=== PATIENT | female | born 1960 ===

== ENCOUNTER 2021-08-07 14:34 | Emergency (ER) | payer BC ==
[2021-08-07] MEDS ORDERED: Ondansetron 4 MG Tab.DIS PO ONE (14:35)
--- NOTE | 2021-08-07 15:12 | PCM.EKG ---
#1 Interpretation EKG Date: 08/07/21 Time: 14:51 EKG Interpretation Comments: Sinus tachycardia, leftward axis, no contiguous ST-T segment abnormalities
[2021-08-07] MEDS ORDERED: Ondansetron 4 MG/2 ML SDV IVPUSH ONE (15:13)
[2021-08-07] MEDS ORDERED: Propranolol 80 MG Cap.ER PO ONE (15:20)
[2021-08-07] MEDS ORDERED: cloNIDine 0.1 MG Tab PO ONE (15:21)
[2021-08-07] MEDS ORDERED: Labetalol 20 MG/4 ML Syringe IVPUSH ONE (15:26)
[2021-08-07] MEDS ORDERED: Amoxicillin/Clavulanate K 875-125 MG Tab PO ONE (15:38)
[2021-08-07] MEDS ORDERED: Acetaminophen 325 MG Tab PO ONE (15:38)
--- NOTE | 2021-08-07 15:39 | EDM.PDOC ---
ED HPI GENERAL MEDICAL PROBLEM - General Stated Complaint: HIGH BP Time Seen by Provider: 08/07/21 14:45 Source of Information: Reports: Patient History Limitations: Reports: No Limitations - History of Present Illness INITIAL COMMENTS - FREE TEXT/NARRATIVE: 61-year-old lady with past medical history significant for severe chronic sinusitis with corrective surgery went to the walk-in clinic because of a 2-day history of upper respiratory symptoms including sinus pain, cough, sinus drainage, sore throat, fever. She has been vaccinated for COVID-19 and does not know of any Covid positive contacts. However, her sister did test positive last month. In the walk-in clinic she was found to have significantly elevated blood pressure with systolic pressure above 200 and diastolic pressure above 100. She was sent to the emergency department for further evaluation and treatment. Patient revealed that because of her illness and some nausea she did not take her clonidine last night. She does also complain of a mild midsternal chest pain. headache Pain Score (Numeric/FACES): 4 mid abdomen Pain Score (Numeric/FACES): 4 - Related Data Allergies Allergy/AdvReac Type Severity Reaction Status Date / Time No Known Allergies Allergy Verified 08/07/21 15:17 Home Meds: Home Meds Amoxicillin/Potassium Clav [Augmentin 875-125 Tablet] 1 each PO BID #13 tablet 08/07/21 [Rx] FLUoxetine HCl [Prozac] 20 mg PO 08/07/21 [History] atorvaSTATin [Lipitor] 20 mg PO BEDTIME 08/07/21 [History] cloNIDine [Catapres] 0.1 mg PO DAILY 08/07/21 [History] ED ROS GENERAL - Review of Systems Review Of Systems: See Below Constitutional: Reports: Fever HEENT: Reports: Rhinitis, Sinus Problem, Throat Pain Respiratory: Reports: Cough Cardiovascular: Reports: Chest Pain Endocrine: Reports: No Symptoms GI/Abdominal: Reports: No Symptoms : Reports: No Symptoms Musculoskeletal: Reports: No Symptoms Skin: Reports: No Symptoms Neurological: Reports: No Symptoms Psychiatric: Reports: No Symptoms Hematologic/Lymphatic: Reports: No Symptoms Immunologic: Reports: No Symptoms ED EXAM, GENERAL - Physical Exam Exam: See Below Exam Limited By: No Limitations General Appearance: Alert, Mild Distress Eye Exam: Bilateral Eye: EOMI Throat/Mouth: Inflammation Head: Atraumatic, Normocephalic Neck: Normal Inspection. No: Lymphadenopathy (R), Lymphadenopathy (L) Respiratory/Chest: No Respiratory Distress, Lungs Clear, Normal Breath Sounds Cardiovascular: Normal Peripheral Pulses, Regular Rate, Rhythm, No Murmur Peripheral Pulses: 2+: Radial (L), Radial (R), Dorsalis Pedis (L), Dorsalis Pedis (R) GI/Abdominal: Normal Bowel Sounds, Non-Tender Back Exam: Normal Inspection. No: CVA Tenderness (R), CVA Tenderness (L) Extremities: Normal Inspection, No Pedal Edema Neurological: Alert, Oriented, CN II-XII Intact, Normal Cognition Psychiatric: Normal Affect, Normal Mood Skin Exam: Warm, Dry Course - Vital Signs Text/Narrative:: Patient given 4 mg Zofran IV, 10 mg labetalol IV, 0.1 mg clonidine p.o., 650 mg Tylenol p.o., and Augmentin 875/125 p.o. Review of EKG is within normal limits with no obvious ST T-segment changes, possible left axis deviation. Mild leukocytosis. Covid test is negative. Last Recorded V/S: Last Vital Signs Temp Pulse Resp BP 186/105 H 08/07/21 15:31 Pulse Ox - Orders/Labs/Meds Orders: Active Orders 24 hr Category Date Time Status UA W/MICROSCOPIC [URIN] Stat Lab 08/07/21 16:48 Received EKG 12 Lead [EK] Routine Ther 08/07/21 14:51 Ordered Labs: Laboratory Tests 08/07/21 08/07/21 08/07/21 Range/Units 15:00 15:00 15:00 WBC 11.2 H (3.0-10.3) x10-3/uL RBC 4.35 (3.60-5.20) x10(6)uL Hgb 14.2 (11.4-15.5) g/dL Hct 42.2 (34.2-48.2) % MCV 96.9 (76.7-100.5) fL MCH 32.6 (23.9-33.9) pg MCHC 33.7 (31.9-34.8) g/dL RDW 13.2 (12.3-16.5) % Plt Count 315 (151-488) x10(3)uL MPV 8.1 (7.1-12.4) fL Neut % (Auto) 69.9 (30.8-76.2) % Lymph % (Auto) 21.8 (18.4-52.1) % [place] % (Auto) 5.8 (4.4-15.7) % Eos % (Auto) 1.7 (0.6-8.1) % Baso % (Auto) 0.8 (0.2-1.5) % Neut # (Auto) 7.8 H (1.5-6.3) x10-3/uL Lymph # (Auto) 2.4 (1.0-4.4) x10-3/uL [place] # (Auto) 0.6 (0.3-1.0) x10-3/uL Eos # (Auto) 0.2 (0.0-0.8) x10-3/uL Baso # (Auto) 0.1 (0.0-0.1) x10-3/uL Sodium 141 (135-145) mmol/L Potassium 4.0 (3.5-5.3) mmol/L Chloride 105 (100-110) mmol/L Carbon Dioxide 24 (21-32) mmol/L BUN 13 (7-18) mg/dL Creatinine 0.9 (0.55-1.02) mg/dL Est Cr Clr Drug Dosing TNP Estimated GFR (MDRD) > 60 (>60) BUN/Creatinine Ratio 14.4 (9-20) Glucose 106 (80-116) mg/dL Calcium 8.7 (8.6-10.2) mg/dL Total Bilirubin 0.5 (0.1-1.3) mg/dL AST 40 H (5-25) IU/L ALT 43 H (12-36) U/L Alkaline Phosphatase 86 (56-112) IU/L Troponin I 5.9 (4.0-60.3) pg/mL Total Protein 7.6 (6.0-8.0) g/dL Albumin 4.1 (3.2-4.6) g/dL Globulin 3.5 g/dL Albumin/Globulin Ratio 1.2 SARS-CoV-2 RNA ([facility]ATH[facility]EN) (NEGATIVE) 08/07/21 Range/Units 16:00 WBC (3.0-10.3) x10-3/uL RBC (3.60-5.20) x10(6)uL Hgb (11.4-15.5) g/dL Hct (34.2-48.2) % MCV (76.7-100.5) fL MCH (23.9-33.9) pg MCHC (31.9-34.8) g/dL RDW (12.3-16.5) % Plt Count (151-488) x10(3)uL MPV (7.1-12.4) fL Neut % (Auto) (30.8-76.2) % Lymph % (Auto) (18.4-52.1) % [place] % (Auto) (4.4-15.7) % Eos % (Auto) (0.6-8.1) % Baso % (Auto) (0.2-1.5) % Neut # (Auto) (1.5-6.3) x10-3/uL Lymph # (Auto) (1.0-4.4) x10-3/uL [place] # (Auto) (0.3-1.0) x10-3/uL Eos # (Auto) (0.0-0.8) x10-3/uL Baso # (Auto) (0.0-0.1) x10-3/uL Sodium (135-145) mmol/L Potassium (3.5-5.3) mmol/L Chloride (100-110) mmol/L Carbon Dioxide (21-32) mmol/L BUN (7-18) mg/dL Creatinine (0.55-1.02) mg/dL Est Cr Clr Drug Dosing Estimated GFR (MDRD) (>60) BUN/Creatinine Ratio (9-20) Glucose (80-116) mg/dL Calcium (8.6-10.2) mg/dL Total Bilirubin (0.1-1.3) mg/dL AST (5-25) IU/L ALT (12-36) U/L Alkaline Phosphatase (56-112) IU/L Troponin I (4.0-60.3) pg/mL Total Protein (6.0-8.0) g/dL Albumin (3.2-4.6) g/dL Globulin g/dL Albumin/Globulin Ratio SARS-CoV-2 RNA ([facility]ATHLEEN) Negative (NEGATIVE) Meds: Medications Discontinued Medications Generic Name Dose Route Start Last Admin Trade Name Arlene PRN Reason Stop Dose Admin Acetaminophen 650 mg 08/07/21 15:38 08/07/21 16:53 Acetaminophen 325 Mg Tab PO 08/07/21 15:39 650 mg NOW ONE Administration Amoxicillin/Clavulanate Potassium 1 tab 08/07/21 15:38 08/07/21 16:53 Amoxicillin/Clavulanate K 875-125 Mg Tab PO 08/07/21 15:39 1 tab ONETIME ONE Administration Clonidine HCl 0.1 mg 08/07/21 15:21 08/07/21 15:31 Clonidine 0.1 Mg Tab PO 08/07/21 15:22 0.1 mg ONETIME ONE Administration Labetalol HCl 10 mg 08/07/21 15:26 08/07/21 15:32 Labetalol 20 Mg/4 Ml Syringe IVPUSH 08/07/21 15:27 10 mg ONETIME ONE Administration Protocol Ondansetron HCl 4 mg 08/07/21 15:13 08/07/21 15:18 Ondansetron 4 Mg/2 Ml Sdv IVPUSH 08/07/21 15:14 4 mg ONETIME ONE Administration Propranolol HCl 120 mg 08/07/21 15:20 08/07/21 15:30 Propranolol 80 Mg Cap.Er PO 08/07/21 15:21 Not Given ONETIME ONE Departure - Departure Time of Disposition: 17:09 Disposition: Home, Self-Care 01 Condition: Good Clinical Impression: Acute bacterial sinusitis, Hypertensive urgency - Discharge Information *PRESCRIPTION DRUG MONITORING PROGRAM REVIEWED*: Not Applicable *COPY OF PRESCRIPTION DRUG MONITORING REPORT IN PATIENT CHRISTINE: Not Applicable Prescriptions: Amoxicillin/Potassium Clav [Augmentin 875-125 Tablet] 1 each PO BID #13 tablet Instructions: Sinusitis, Adult, Hypertension, Adult Referrals: Yolanda Mckenzie NP [Primary Care Provider] - Additional Instructions: Patient encouraged to take antibiotic as directed until completed. Patient encouraged to take her blood pressure medication at home and to try not to miss doses. Patient encouraged to follow-up with her primary care physician to ensure resolution of sinus infection and other symptoms and to ensure better control of her blood pressure. Sepsis Event Note (ED) - Focused Exam Vital Signs: Vital Signs BP 08/07/21 15:31 186/105 H - My Orders Last 24 Hours: My Active Orders 08/07/21 14:51 EKG 12 Lead [EK] Routine 08/07/21 16:48 UA W/MICROSCOPIC [URIN] Stat - Assessment/Plan Last 24 Hours: My Active Orders 08/07/21 14:51 EKG 12 Lead [EK] Routine 08/07/21 16:48 UA W/MICROSCOPIC [URIN] Stat
== END 2021-08-07 18:25 | disposition home or self-care (01) ==
LOC: FB.ED 14:34
DX: J01.90 Acute sinusitis, unspecified (principal); B96.89 Other specified bacterial agents as the cause of diseases classified elsewhere; I16.0 Hypertensive urgency; Z20.822 Contact with and (suspected) exposure to COVID-19
CPT/HCPCS: 80053; 81001; 84484; 85025; 87635; 93005; 96374; 96375; 99283; A9270; J2405; J3490; U0002